=== PATIENT | female | born 1970 | race Caucasian/White ===

== ENCOUNTER 2018-06-28 10:04 | Emergency (ER) | payer MEDICAID ==
[2018-06-28 10:40] LABS: MODE ROOM AIR; MetHgb Venous 0.2 %; Sample Type Blood venous; Site VENOUS LINE; Venous COHb 0.6 %; Venous Fraction OxyHgb 58.4 %; Venous Oxygen Sat 58.9 mmHG (55.0-75.0); Venous Total Hemglobin 11.4 g/dl
[2018-06-28] MEDS: SOD CHLORIDE 0.9% 860 ML IV (10:40)
[2018-06-28 10:50] LABS: ADD MAN DIFF? NO
[2018-06-28 10:57] LABS: ABNORMAL IP MESSAGE 1; BASOPHIL # 0.1 10^3/ul (0.0-0.1); BASOPHILS % 0.9 % (0.0-2.0); EOSINOPHILS # 0.1 10^3/ul (0.0-0.5); EOSINOPHILS % 1.5 % (0.0-7.0); HEMATOCRIT 35.7 % (37.0-47.0); HEMOGLOBIN 10.1 g/dl (12.0-16.0); LYMPHOCYTES # 2.1 10^3/ul (0.8-2.9); MEAN CORPUSCULAR HGB CONC 28.3 g/dl (32.0-37.0); MEAN CORPUSCULAR VOLUME 63.8 fl (82.0-101.0); MEAN PLATELET VOLUME 10.3 fl (7.4-10.4); MONOCYTE # 0.6 10^3/ul (0.3-0.9); MONOCYTES % 6.5 % (0.0-11.0); NEUTROPHIL # 6.1 10^3/ul (1.6-7.5); NEUTROPHILS % 67.7 % (39.0-77.0); PLATELET COUNT 441 10^3/UL (140-415); RED CELL DISTRIBUTION WIDTH 21.5 % (11.5-14.5)
[2018-06-28 10:57] LABS: WHITE BLOOD COUNT 8.9 10^3/ul (4.8-10.8)
[2018-06-28 11:03] LABS: ADD UMIC YES; UR ASCORBIC ACID NEGATIVE (NEGATIVE); UR BACTERIA FEW /HPF (NONE SEEN); UR BILIRUBIN (Dip) NEGATIVE (NEGATIVE); UR BLOOD (Dip) 3+ mg/dL (NEGATIVE); UR CLARITY CLEAR (CLEAR); UR COLOR YELLOW (YELLOW); UR GLUCOSE (Dip) 3+ mg/dL (NEGATIVE); UR KETONES (Dip) 2+ mg/dL (NEGATIVE); UR LEUKOCYTE ESTERASE (Dip) NEGATIVE Leu/ul (NEGATIVE); UR MUCUS FEW /HPF (NONE SEEN); UR NITRITE (Dip) NEGATIVE (NEGATIVE); UR RBC 31 /HPF (0-5); UR SPECIFIC GRAVITY (Dip) 1.031 (1.003-1.030); UR SQUAMOUS EPITHELIAL CELL FEW /HPF (FEW); UR TOTAL PROTEIN (Dip) NEGATIVE (NEGATIVE); UR UROBILINOGEN (Dip) NEGATIVE (NEGATIVE); UR WBC 2 /HPF (0-5)
[2018-06-28 11:20] LABS: ANION GAP 18 (8-16); BLOOD UREA NITROGEN 11 mg/dl (7-20); CALCIUM 9.9 mg/dl (8.4-10.2); CARBON DIOXIDE 21 mmol/L (21-31); CHLORIDE 102 mmol/L (97-110); CREATININE 0.76 mg/dl (0.44-1.00); MAGNESIUM 2.1 mg/dl (1.7-2.5); PHOSPHORUS 3.4 mg/dl (2.5-4.9); POTASSIUM 4.3 mmol/L (3.5-5.1); SODIUM 137 mmol/L (135-144)
[2018-06-28 11:23] LABS: GLUCOSE 450 mg/dl (70-220)
[2018-06-28 11:44] LABS: POSITIVE DIFF @See below
[2018-06-28] MEDS: metFORMIN 500 MG TAB PO (12:47)
== END 2018-06-28 12:59 | disposition home or self-care (01) ==
LOC: E/R 10:04
DX: E11.65 Type 2 diabetes mellitus with hyperglycemia (principal)
CPT/HCPCS: 36415; 80048; 81001; 81025; 82803; 82962; 83735; 84100; 85025; 99284-25

== ENCOUNTER 2019-03-31 09:14 | Emergency (ER) | payer MEDICAID | END 2019-03-31 09:54 | disposition home or self-care (01) | LOC: FTE 09:14 | DX: R21 Rash and other nonspecific skin eruption (principal); E11.9 Type 2 diabetes mellitus without complications; T43.225A Adverse effect of selective serotonin reuptake inhibitors, initial encounter; Z79.84 Long term (current) use of oral hypoglycemic drugs | CPT/HCPCS: 99283; Z7502 ==